=== PATIENT | male | born 1985 | race Caucasian/White ===

== ENCOUNTER 2018-06-30 18:55 | Inpatient (IN) | payer BC, OTHER ==
[2018-06-30] VITALS: BP 98/67
[~2018-06-30] VITALS: Ht 172.7 cm; Wt 70.3 kg
[2018-06-30 21:00] VITALS: BP 143/91
--- NOTE | 2018-06-30 21:00 | NUR ---
Pre-admission assessment Patient is a 33-year old, male, seen at intake, AAOx4, no SOB but noted with anxiety and flushed skin. Patient is intoxicated and smells of alcohol. Discussed with patient admission policies of the unit. Patient is coherent and able to respond to questions appropriately. Patient is accompanied by mother and friend. Pt is ambulatory with steady gait. Pt reports that he relapsed mid-April after 7 months of sobriety. He verbalized drinking Tequila daily and used to use Cocaine daily and he last used 3 weeks ago. Vital signs taken and as follows: IF=790/91, P=119, O2 sat on RA=96%, RR=20, T=98.2. Pt verbalized instructions and teachings regarding disposal of narcotic and other controlled home meds, unit protocols such as taking of vital signs Q4H and handling and disposal of contraband.
[2018-06-30] MEDS ORDERED: DIAZEPAM 10 MG TABLET PO PRN ×2 (21:15)
[2018-06-30] MEDS ORDERED: LORAZEPAM 2 MG/1 ML VIAL IM PRN (21:15)
[2018-06-30] MEDS ORDERED: SRC ALCOHOL WITHDRAWAL ADMITTING PROTOCOL XX PRN (21:15)
[2018-06-30] MEDS ORDERED: MAG HYDROX/AL HYDROX/SIMETH 30 ML LIQUID UDC PO PRN (21:15)
[2018-06-30] MEDS ORDERED: ONDANSETRON ODT 4 MG TAB.RAPDIS SL PRN (21:15)
[2018-06-30] MEDS ORDERED: diphenhydrAMINE 50 MG CAPSULE PO PRN (21:15)
[2018-06-30] MEDS ORDERED: DIAZEPAM 5 MG TABLET PO PRN (21:15)
[2018-06-30] MEDS ORDERED: LOPERAMIDE HCL 2 MG CAPSULE PO PRN ×2 (21:15)
[2018-06-30] MEDS ORDERED: MIRALAX 17 GM POWD.PACK PO PRN (21:15)
[2018-06-30] MEDS ORDERED: ONDANSETRON 4 MG/2 ML VIAL IM PRN (21:15)
[2018-06-30] MEDS ORDERED: ACETAMINOPHEN 325 MG TABLET PO PRN (21:15)
[2018-06-30] MEDS ORDERED: MAGNESIUM HYDROXIDE 30 ML LIQUID UDC PO PRN (21:15)
[2018-06-30 21:26] LABS: BASOPHILS # (AUTO) 0.1 K/uL (0.0-8.0); BASOPHILS % (AUTO) 0.7 % (0.0-2.0); EOSINOPHILS # (AUTO) 0.3 K/uL (0.0-0.7); HEMATOCRIT 50.1 % (36.7-47.1); LYMPHOCYTES # (AUTO) 3.5 K/uL (20.0-40.0); LYMPHOCYTES % (AUTO) 39.3 % (20.5-51.5); MEAN CORPUSCULAR HEMOGLOBIN 32.7 uug (23.8-33.4); MEAN CORPUSCULAR HGB CONC 34 g/dL (32.5-36.3); MEAN CORPUSCULAR VOLUME 96.2 fL (73.0-96.2); MONOCYTES # (AUTO) 0.8 K/uL (2.0-10.0); MONOCYTES % (AUTO) 9.2 % (0.0-11.0); NEUTROPHILS # (AUTO) 4.3 K/uL (1.8-8.9); NEUTROPHILS % (AUTO) 47.8 % (38.5-71.5); PLATELET COUNT (AUTO) 265 K/uL (152-348); RED BLOOD CELL COUNT(AUTO) 5.21 MIL/uL (4.06-5.63)
[2018-06-30 21:39] LABS: BILIRUBIN,TOTAL 0.3 mg/dL (0.2-1.0); CREATININE 0.9 mg/dL (0.6-1.3); MAGNESIUM 2.3 mg/dL (1.8-2.4); POTASSIUM 4.1 mmol/L (3.5-5.1)
[2018-06-30 21:45] LABS: *AMPHETAMINE, URINE NEGATIVE (NEGATIVE); *BARBITURATE, URINE NEGATIVE (NEGATIVE); *CANNABINOID, URINE NEGATIVE (NEGATIVE); *COCCAINE, URINE NEGATIVE (NEGATIVE); *OPIATE, URINE NEGATIVE (NEGATIVE); *PHENCYCLIDINE SCREEN,URINE NEGATIVE (NEGATIVE)
[2018-06-30 22:02] LABS: THYROID STIMULATING HORMONE 0.954 mIU/mL (0.358-3.740)
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
[2018-06-30] MEDS: CLONIDINE HCL 0.1 MG TABLET PO PRN (22:24)
--- NOTE | 2018-06-30 22:24 | NUR ---
PRN Clonidine Patient noted to be anxious and is easily agitated. With IL=680/97, jibwe=156. Administered Clonidine 0.1 mg PO PRN. Will reassess.
[2018-06-30] MEDS ORDERED: THIAMINE HCL 200 MG/2 ML VIAL IM ONE (23:00)
--- NOTE | 2018-06-30 23:25 | NUR ---
Clonidine reassess Patient asleep with no SOB nor facial grimacing noted.
[2018-07-01] VITALS: BP 98/67
--- NOTE | 2018-07-01 | NUR ---
CIWA=4 Patient continues to be anxious and appears flushed. Patient is also melancholic. Dressing on the right arm is intact.
[2018-07-01] MEDS ORDERED: NEOM28.37 TP (00:17)
[2018-07-01] MEDS ORDERED: LAMO25TA5 PO (00:17)
[2018-07-01] MEDS ORDERED: BACL10TA PO (00:17)
[2018-07-01] MEDS ORDERED: ALBU18HF2 IH (00:18)
[2018-07-01] MEDS ORDERED: QUET100T PO (00:18)
[2018-07-01] MEDS ORDERED: NAPH10DR EACHEYE (00:18)
--- NOTE | 2018-07-01 04:00 | NUR ---
CIWA Deferred CIWA Deferred. Patient is asleep. No SOB nor facial grimacing noted.
--- NOTE | 2018-07-01 07:21 | NUR ---
End of Shift Patient asleep on bed. His room smells of alcohol. He continued to have a depressed mood when he was awake. Dressing on right arm is dry, secured and intact. Patient with flushed skin and appears unkempt and disheveled. PRN Clonidine was administered during the shift and it was effective. Last CIWA=4 and slept for 7 hours. Endorsed to AM shift nurse for continuity of care.
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
[2018-07-01 08:00] VITALS: BP 110/64
[2018-07-01] MEDS ORDERED: SILVER SULFADIAZINE 1% CREAM 50 GM TP SCH (09:00)
[2018-07-01] MEDS ORDERED: TUBERCULIN,PURIF.PROT.DERIV. 5 TU/0.1 ML TEST ID ONE (09:00)
[2018-07-01] MEDS: MULTIVITAMINS,THERAPEUTIC TABLET PO SCH (09:38)
[2018-07-01] MEDS: THIAMINE HCL 100 MG TABLET PO SCH (09:38)
[2018-07-01] MEDS: FOLIC ACID 1 MG TABLET PO SCH (09:38)
--- NOTE | 2018-07-01 09:38 | NUR ---
PRN GIVEN Pt was c/o anxiety, agitation, sweats and chills. Pt is observed with fine tremors on BUE and restlessness. CIWA score was 11. Valium 10mg PO PRN was given as ordered. Encouraged increase fluid intake. Will continue to monitor.
--- NOTE | 2018-07-01 09:43 | NUR ---
Therapist prompted client to attend group therapy.
--- NOTE | 2018-07-01 10:38 | NUR ---
PRN RE-ASSESSMENT Valium PRN was effective. Pt continues to be observed anxious m/b pt is being observed fidgety. Fine tremors are seen on BUE. Pt states, "I feel a little better". CIWA score is 8. Will continue to monitor.
[2018-07-01 12:00] VITALS: BP 117/71
--- NOTE | 2018-07-01 12:00 | NUR ---
CIWA SCORE Pt is c/o increase anxiety, agitation, sweats and chills. Pt is noted with flat affect and fine tremors on BUE. CIWA score was 11. Encouraged increase fluid intake. Will continue to monitor.
[2018-07-01] MEDS ORDERED: 5 DAY TAPER VALIUM-SERENITY PROTOCOL PO PRN (12:45)
[2018-07-01] MEDS ORDERED: BACLOFEN 10 MG TABLET PO SCH (14:00)
[2018-07-01] MEDS ORDERED: NAPHAZOLINE/PHENIR OPHT DROP 15 ML BOTTLE EACHEYE PRN (14:00)
[2018-07-01] MEDS: DIAZEPAM 10 MG TABLET PO SCH ×2 (14:56→21:18)
[2018-07-01] MEDS: BACLOFEN 10 MG TABLET PO SCH ×2 (14:56→21:18)
[2018-07-01 16:00] VITALS: BP 129/72
--- NOTE | 2018-07-01 19:10 | NUR ---
END OF SHIFT Pt is a 33 yr old male, AA&Ox4, Pt was admitted on 06/30/18 for ETOH withdrawal and started on 5 day Valium taper as ordered. Pt has been observed with increase fatigue and remained in bed throughout the day. Pt was encouraged to attend group therapy but pt refused. While awake, Pt was c/o increase anxiety, agitation, sweats, chills and lack of appetite. Pt was observed with flat affect and fine tremors on BUE. Last CIWA score was 8. Pt was given Valium 10mg PO PRN as ordered and medication was effective. Pt was also seen by CARLOS King of Dr[facility] Surgeon; with new wound treatment on right arm. Pt was encouraged increase fluid intake for hydration. Safety precautions observed. Endorsed to production team manager nurse to continue with care.
--- NOTE | 2018-07-01 19:10 | NUR ---
Start of Shift Received 33 year old male patient admitted to [facility] 06/30/18 for medically supervised withdrawal from ETOH. Pt currently on day 1 of a 5 day Valium taper, which he is tolerating well. Pt received PRN Valium on day shift. Last CIWA 8 @1600. Pt resting in bed with eyes closed. Respirations are even and unlabored. Bed is low, padded side rails up x 2, and call marie in reach. Will continue to monitor.
[2018-07-01 20:00] VITALS: BP 144/93
--- NOTE | 2018-07-01 20:00 | NUR ---
CIWA 13 Pt awake and alert. Pt is anxious, agitated, withdrawn, Noted with tremors. C/O visual disturbances (spots and memories), auditory disturbances ( voices, conversations), and tactile disturbances (tingling).
[2018-07-01] MEDS: QUETIAPINE FUMARATE 100 MG TABLET PO SCH (21:18)
[2018-07-01] MEDS: LAMOTRIGINE 25 MG TABLET PO SCH (21:19)
[2018-07-01] MEDS: VENTOLIN INH PRN (21:22)
--- NOTE | 2018-07-01 21:30 | NUR ---
PRN MDI @2121/ PRN wound care @2129 Pt received his clean clothes. Dressing was removed for shower. S/P shower pt requested his inhaler. Dose given at 2121. Wound care given per order. Will continue to monitor.
--- NOTE | 2018-07-01 22:22 | NUR ---
Reassess PRN MDI Medication effective. Pt is resting with eyes closed. Respirations are even and unlabored. Will continue to monitor.
--- NOTE | 2018-07-02 | NUR ---
CIWA deferred/Vitals refused Pt in bed resting with eyes closed. Respirations are even and unlabored. Bed low, padded side rails up x 2, and call marie in reach. CIWA deferred and pt refused vitals. Continue to monitor.
--- NOTE | 2018-07-02 06:36 | NUR ---
End of Shift Endorsing 33 year old male patient admitted to [facility] 06/30/18 for medically supervised withdrawal from ETOH. Pt currently on day 2 of a 5 day Valium taper, which he is tolerating well. Pt received PRN MDI on pharmacy technology instructor. Last CIWA 13 @1999. Pt resting in bed with eyes closed. Respirations are even and unlabored. Bed is low, padded side rails up x 2, and call marie in reach. PO intake 1150 ml, voided x 4, BM x 0, and slept 8 hours.
[2018-07-02 08:00] VITALS: BP 138/88
--- NOTE | 2018-07-02 08:00 | NUR ---
START OF SHIFT AND CIWA ASSESSMENT Pt 33 y/o male admitted for etoh withdrawal. Pt received in room on bed with eyes closed resting, but arousable to name. Pt alert and oriented to name, place, and time. Perrla. Skin warm and moist to touch. Respirations even and unlabored. Appears disheveled. Clothes and empty drink bottles scattered throughout the room. Encouraged to maintain hygiene. ciwa=14 @ 0800. Anxious and restless. Pressured speech. Irritable. Intermittent perspiration. Bilateral hand gross tremors noted. Complaints of generalized discomfort. It was reported that pt slept for 8 hours last night. Pt is on a 5 day valium taper and is on day 2. Pt denies any SI. Bed on lowest position with side rails x2 up for safety. Call light within reach.
[2018-07-02 08:06] LABS: HEPATITIS B SURFACE AG Negative (Negative)
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
[2018-07-02] MEDS: SILVER SULFADIAZINE 1% CREAM 50 GM TP SCH (09:41)
[2018-07-02] MEDS: MULTIVITAMINS,THERAPEUTIC TABLET PO SCH (09:41)
[2018-07-02] MEDS: DIAZEPAM 5 MG TABLET PO SCH ×4 (09:41→21:07)
[2018-07-02] MEDS: BACLOFEN 10 MG TABLET PO SCH ×3 (09:41→21:08)
[2018-07-02] MEDS: FOLIC ACID 1 MG TABLET PO SCH (09:41)
[2018-07-02] MEDS: THIAMINE HCL 100 MG TABLET PO SCH (09:41)
[2018-07-02] MEDS ORDERED: QUET50TA PO (09:46)
[2018-07-02] MEDS: IBUPROFEN 600 MG TABLET PO PRN (10:42)
--- NOTE | 2018-07-02 10:50 | NUR ---
PRN MOTRIN Pt with c/o pain of right arm 11/06. Motrin po prn per MD order given.
--- NOTE | 2018-07-02 11:50 | NUR ---
PRN ROSLYN RUIZ Pt states medication effective.
[2018-07-02 12:00] VITALS: BP 152/101
--- NOTE | 2018-07-02 12:00 | NUR ---
CIWA ASSESSMENT ciwa=12. Anxious and restless. Bilateral hand tremors noted. Pressured speech noted. Fidgety. Complaints of generalized discomfort. Skin warm and moist to touch.
[2018-07-02] MEDS: CLONIDINE HCL 0.1 MG TABLET PO PRN (12:46)
--- NOTE | 2018-07-02 12:47 | NUR ---
PRN CATAPRES bp= 152/101. Catapres po prn per MD order given.
--- NOTE | 2018-07-02 12:50 | NUR ---
Therapist prompted client to attend daily group therapy sessions.
--- NOTE | 2018-07-02 13:47 | NUR ---
PRN LONDON RUIZ uo=084/92
[2018-07-02 16:00] VITALS: BP 144/97
--- NOTE | 2018-07-02 16:00 | NUR ---
CIWA ASSESSMENT ciwa=12. Anxious and restless. Bilateral hand tremors noted. Pressured speech. Irritable. Complaints of generalized discomfort.
[2018-07-02] MEDS ORDERED: Medication Not On Formulary EA (Quetiapine Fumarate (Seroquel) 50 MG) PO SCH (17:00)
[2018-07-02] MEDS: QUETIAPINE FUMARATE 25 MG TABLET PO SCH (17:20)
--- NOTE | 2018-07-02 17:33 | NUR ---
PRN IMMODIUM Pt states with 1 episode of loose stool. Immodium po prn per MD order given.
--- NOTE | 2018-07-02 18:33 | NUR ---
PRN IMODIUM EVAL Pt denies any loose stool at this time.
--- NOTE | 2018-07-02 19:30 | NUR ---
Start of shift Patient Received. Patient is a 33 year old male that continues on a modified Valium taper for increased signs and symptoms of ETOH Withdrawal. Patient continues with ongoing wound care to right forearm open wound. Patient received PRN Imodium, Clonidine, and Motrin with medications noted to be effective. Last noted CIWA 12. Upon rounds patient is noted in his room sleeping. Breathing even and non labored. No signs of restlessness or facial grimacing noted. Will continue to monitor.
--- NOTE | 2018-07-02 19:42 | NUR ---
END OF SHIFT Pt 33 y/o male admitted for etoh withdrawal. Pt alert and oriented to name, place, and time. Perrla. Skin warm and moist to touch. Respirations even and unlabored. Appears disheveled. Empty drink bottles and food wrappings scattered throughout the room. Encouraged to maintain hygiene. ciwa=12 @ 1600. Anxious and restless. Pressured speech. Bilateral hand gross tremors noted. Irritable. Intermittent perspiration. Complaints of generalized pain. Pt attended group activity. Pt medication compliant. Pt is on a 5 day valium taper and is on day 2. Pt denies any SI. Bed on lowest position with side rails x2 up for safety. Call light within reach.
[2018-07-02 20:51] VITALS: BP 131/74
--- NOTE | 2018-07-02 20:55 | NUR ---
CIWA Assessment/Left AC Discoloration d/t blood draw Patient continues on a modified Valium taper for increased signs and symptoms of withdrawal. Patient appears with flat, depressed, worried affect. He verbalizes increased anxiety, chills, sweats, flushed face, agitation, and tremulous to touch. Wound care rendered to right forearm and patient was able to tolerate well. Patient is also noted with a hematoma to left AC. Patient verbalizes "this is from the blood draw from when I came in." No swelling or pain noted. Area is noted blue to purple in color. CN and MD made aware. Will continue to monitor.
[2018-07-02] MEDS: LAMOTRIGINE 25 MG TABLET PO SCH (21:08)
[2018-07-02] MEDS: QUETIAPINE FUMARATE 100 MG TABLET PO SCH (21:08)
--- NOTE | 2018-07-03 00:05 | NUR ---
Vitals and CIWA Assessment Patient is noted in bed with eyes closed. Breathing even and non labored. No signs of restlessness or facial grimacing noted. Vitals refused. CIWA not able to be completed as per order. Will continue to monitor.
--- NOTE | 2018-07-03 04:45 | NUR ---
Vitals and CIWA Patient is noted in bed with eyes closed. Breathing even and non labored. No signs of facial grimacing or restlessness noted. Vitals Refused. CIWA not able to be completed as per order. Will continue to monitor.
[2018-07-03 05:30] VITALS: BP 133/77
[2018-07-03] MEDS: IBUPROFEN 600 MG TABLET PO PRN ×2 (05:36→20:40)
--- NOTE | 2018-07-03 05:38 | NUR ---
WA Assessment/PRN medication Administration Patient is noted awake and returning from smoking patio. Patient is noted to verbalize increased pain to right forearm and requesting Motrin. PRN Motrin administered. patient is noted to verbalize intermittent chills, sweats, anxiety, agitation, and tremulous to touch. patient denies need for medication. He is noted to attempt to fall back to sleep. Will continue to monitor.
--- NOTE | 2018-07-03 06:27 | NUR ---
PRN Medication Reassessment Patient is noted in bed with eyes closed. Breathing even and non labored. No signs of restlessness or facial grimacing noted. PRN Motrin noted to be effective. Will continue to monitor.
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
[2018-07-03 08:14] VITALS: BP 121/77
--- NOTE | 2018-07-03 08:16 | NUR ---
START OF SHIFT: Received Pt A/o X 4. He presents with depressed mood and congruent affect.He denies S/I and H/I. He reports anxiety,restlessness and irritability. CIWA 11. Wound cared done to R arm. It is granulated with small amount of drainage noted. No odor or swelling noted. He continues on Valium taper to manage s/s of w/d which he states is effective. Encouraged increased fluids to assist in facilitating detox process. Will continue to monitor and manage s/s of w/d.
[2018-07-03] MEDS: MULTIVITAMINS,THERAPEUTIC TABLET PO SCH (09:19)
[2018-07-03] MEDS: BACLOFEN 10 MG TABLET PO SCH ×3 (09:19→22:17)
[2018-07-03] MEDS: FOLIC ACID 1 MG TABLET PO SCH (09:19)
[2018-07-03] MEDS: DIAZEPAM 5 MG TABLET PO SCH ×3 (09:20→22:17)
[2018-07-03] MEDS: QUETIAPINE FUMARATE 25 MG TABLET PO SCH ×3 (09:20→18:04)
[2018-07-03] MEDS: THIAMINE HCL 100 MG TABLET PO SCH (09:21)
[2018-07-03] MEDS: SILVER SULFADIAZINE 1% CREAM 50 GM TP SCH (09:21)
[2018-07-03 09:50] LABS: BILIRUBIN,TOTAL 0.3 mg/dL (0.2-1.0); CREATININE 0.8 mg/dL (0.6-1.3); TOTAL PROTEIN, SERUM 6.4 g/dL (6.4-8.2)
[2018-07-03 12:00] VITALS: BP 121/77
--- NOTE | 2018-07-03 12:20 | NUR ---
CIWA 8 He reports intermittent sweats,anxiety and restlessness. Will continue to monitor.
[2018-07-03] MEDS: ESCITALOPRAM OXALATE 10 MG TABLET PO SCH (12:23)
[2018-07-03 16:00] VITALS: BP 134/91
--- NOTE | 2018-07-03 19:15 | NUR ---
Start of Shift note: Patient is a 33 y.o male admitted on 06/30/18 for medically supervised withdrawal from ETOH use. Pt also reported cocaine use. Pt currently on his day #3 of his 5-day Valium taper and tolerating well. His last CIWA 10. No PRN medications received during day shift. Continue with wound treatment on right forearm daily an PRN. Dressing clean dry and intact. Encourage patient to increase fluid intake. Educated pt of current plan of care and medication regimen for the night. Safety measures in place. Bed alarm activated. Both side rails up. Call light within pts reach. Will continue to monitor patient.
--- NOTE | 2018-07-03 19:48 | NUR ---
END OF SHIFT Pt continues on Valium taper to manage s/s of w/d. He c/o anxiety,depression,restlessness and irritability. He denies S/I and H/I. Last CIWA 10. he was compliant with groups and increased fluids. Will pass shift report to oncoming night nurse.
[2018-07-03 20:00] VITALS: BP 161/104
--- NOTE | 2018-07-03 20:00 | NUR ---
CIWA Assessment Pt noted ambulating in the hallway. He appears flushed, with a flat and guarded affect. He is disheveled, unkempt and noted to be malodorous. Scattered clothes and empty bottles all over room. He is showing withdrawal symptoms such as anxiety, agitation, fine tremors, & sweating. CIWA 11.
[2018-07-03] MEDS: CLONIDINE HCL 0.1 MG TABLET PO PRN (20:40)
--- NOTE | 2018-07-03 20:40 | NUR ---
PRN Clonidine & Motrin Patient complained of 6/10 right forearm pain & noted with elevated BP 161/104, KS 126. PRN Clonidine & Motrin administered as ordered. Will monitor for effectiveness of medication.
[2018-07-03 21:30] VITALS: BP 135/97
--- NOTE | 2018-07-03 21:40 | NUR ---
PRN Reassessment Pt verbalized decreased in pain from 6/10 to 2/10 and B/P noted 135/97, NE 117 after 1 hour of medication administration. Will continue to monitor patient.
[2018-07-03] MEDS: LAMOTRIGINE 25 MG TABLET PO SCH (22:17)
[2018-07-03] MEDS: QUETIAPINE FUMARATE 100 MG TABLET PO SCH (22:50)
[2018-07-03] MEDS: VENTOLIN INH PRN (23:15)
--- NOTE | 2018-07-04 | NUR ---
CIWA deferred Pt refused to be woken up for vitals at this time. Pt in bed with eyes close. No acute distress noted. respiration even & unlabored. CIWA deferred d/t pt is asleep and to be reassess when pt's is awake.. Will continue to monitor patient.
--- NOTE | 2018-07-04 04:00 | NUR ---
CIWA deferred Pt refused vitals. Pt asleep in bed with eyes close. No acute distress noted. Breathing even & unlabored. CIWA deferred as ordered and will reassess when pt's is awake.. Will continue to monitor patient.
--- NOTE | 2018-07-04 07:03 | NUR ---
End of Shift Note: Patient continues on his 5-day Valium taper and tolerating well. Pt stable throughout the shift with no acute distress noted. During shift, pt noted withdrawal symptoms such as flushed face, anxiety, agitation, clammy skin, & fine tremors. Last CIWA is 9. Pt received PRN Clonidine for increased in BP and Motrin for pain and was effective. Dressing done on right forearm, kept clean & dry. Encourage pt to increase fluid intake. All due medications and all needs attended. Continue to closely monitor patient for any s/s of withdrawal. Safety measures in place. Bed locked in lowest position. Both side rails up for safety. Call light within pts reach. Will endorse pt to day shift nurse.
--- NOTE | 2018-07-04 07:30 | NUR ---
Start of Shift Note: Report received from communications director nurse. Last CIWA 9 and pt slept for 6 hours. Upon start of shift pt was walking around the hallway, waiting to go to the patio. During assessment, pt stated he is anxious but had no other complaints. Pt is in good spirits and ready to eat breakfast. Educated pt about current plan of care. Pt verbalized understanding. Pt denies pain at this time. Pt is currently on Subutex taper to manage withdrawal symptoms. Bed in lowest position. Side rails up x2. Call light functioning and within reach. All needs attended and met. Will continue to monitor.
[2018-07-04 08:00] VITALS: BP 140/98
[2018-07-04] MEDS: FOLIC ACID 1 MG TABLET PO SCH (08:35)
[2018-07-04] MEDS: THIAMINE HCL 100 MG TABLET PO SCH (08:35)
[2018-07-04] MEDS: MULTIVITAMINS,THERAPEUTIC TABLET PO SCH (08:35)
[2018-07-04] MEDS: ESCITALOPRAM OXALATE 10 MG TABLET PO SCH (08:36)
[2018-07-04] MEDS: QUETIAPINE FUMARATE 25 MG TABLET PO SCH ×3 (08:36→15:49)
[2018-07-04] MEDS: BACLOFEN 10 MG TABLET PO SCH ×3 (08:36→21:12)
[2018-07-04] MEDS: DIAZEPAM 5 MG TABLET PO SCH ×2 (08:36→21:12)
--- NOTE | 2018-07-04 08:40 | NUR ---
Naphcon drops: Pt reported itchy eyes. Naphcon eye drops given as ordered. Eye drops effective
[2018-07-04 12:00] VITALS: BP 140/92
[2018-07-04] MEDS: SILVER SULFADIAZINE 1% CREAM 50 GM TP SCH (12:09)
[2018-07-04] MEDS: IBUPROFEN 600 MG TABLET PO PRN ×2 (12:22→22:09)
--- NOTE | 2018-07-04 12:22 | NUR ---
Motrin PRN: Wound dressing done. Pt c/o 6/10 pain on R arm site. Motrin PRN given as ordered.
--- NOTE | 2018-07-04 13:22 | NUR ---
Motrin Reassessment: Pt reported relief from pain. Motrin effective.
[2018-07-04 16:00] VITALS: BP 143/84
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
[2018-07-04 20:00] VITALS: BP 120/78
[2018-07-04] MEDS: QUETIAPINE FUMARATE 100 MG TABLET PO SCH (21:12)
[2018-07-04] MEDS: LAMOTRIGINE 25 MG TABLET PO SCH (21:12)
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
--- NOTE | 2018-07-04 22:09 | NUR ---
PRN MOTRIN ADMINISTRATION Patient reported having a 5 out of 10 pain in his distal right arm after PRN dressing change. PRN Motrin 600 mg given per MD orders and patient request. Will continue to monitor and assess for effectiveness.
--- NOTE | 2018-07-04 23:09 | NUR ---
PRN MOTRIN REASSESSMENT Patient reports significant relief from right arm pain. Pain level is now at a 2 out of 10. PRN Motrin noted to be effective. Will continue to monitor.
[2018-07-05] VITALS: BP 118/92
[2018-07-05] MEDS: HYDROXYZINE PAMOATE 25 MG CAPSULE PO PRN ×2 (00:28→16:50)
--- NOTE | 2018-07-05 00:28 | NUR ---
PRN VISTARIL ADMINISTRATION Patient reported having severe anxiety which was making it difficult for him to fall asleep. PRN Vistaril 50 mg administered per MD orders and patient request. Will continue to monitor for effectiveness.
--- NOTE | 2018-07-05 01:28 | NUR ---
PRN VISTARIL REASSESSMENT Patient is noted lying in bed with eyes closed and huong, unlabored respirations. No s/s of pain or distress is noted at this time. HOB is flat and bilateral side rails raised for safety. Call light is functional and within reach. Will continue to monitor.
--- NOTE | 2018-07-05 04:00 | NUR ---
VITAL SIGNS REFUSED Patient noted lying in bed with eyes closed and with even, unlabored respirations. Vital signs refused. HOB flat and bilateral side rails raised for safety. No s/s of distress noted at this time. Call light is functional and within reach. Will continue to monitor.
--- NOTE | 2018-07-05 07:28 | NUR ---
END OF SHIFT Patient is noted lying in bed with eyes closed and respirations even and unlabored. Patient is a 33 year old male admitted for medically supervised detox from ETOH with secondary diagnoses of anxiety, depression, asthma, and bipolar disorder and he has a shellfish allergy. During the shift, the patient reported anxiety and pain to his right arm requiring PRN meds Vistaril and Motrin. He also required a dressing change to his right arm. He tolerated the dressing change with no issues. PRN meds were effective. Pt slept for about 6.5 hours. Last CIWA score is 9 taken at 0000. Call light is functional and within reach. Bilateral side rails raised. All safety measures in place. Endorsed to oncoming AM nurse.
--- NOTE | 2018-07-05 07:30 | NUR ---
START OF SHIFT Pt 33 y/o male admitted for etoh withdrawal. Pt received in room on bed awake watching television. Pt alert and oriented to name, place, and time. Perrla. Skin warm and moist to touch. Respirations even and unlabored. Appears disheveled. Empty drink bottles scattered throughout the room. Encouraged to maintain hygiene. Last ciwa=9 @2000. Anxious and restless. Pressured speech. Irritable. Complaints of generalized discomfort and body aches. It was reported that pt slept for 7 hours last night. Pt is on a 5 day valium taper and is on day 5. Bed on lowest position with side rails x2 up for safety. Call light within reach.
[2018-07-05 08:00] VITALS: BP 128/70
[2018-07-05] MEDS: FOLIC ACID 1 MG TABLET PO SCH (08:13)
[2018-07-05] MEDS: MULTIVITAMINS,THERAPEUTIC TABLET PO SCH (08:13)
[2018-07-05] MEDS: ESCITALOPRAM OXALATE 10 MG TABLET PO SCH (08:13)
[2018-07-05] MEDS: BACLOFEN 10 MG TABLET PO SCH ×3 (08:13→21:55)
[2018-07-05] MEDS: QUETIAPINE FUMARATE 25 MG TABLET PO SCH ×3 (08:13→16:51)
[2018-07-05] MEDS: IBUPROFEN 600 MG TABLET PO PRN (08:13)
[2018-07-05] MEDS: THIAMINE HCL 100 MG TABLET PO SCH (08:13)
--- NOTE | 2018-07-05 08:13 | NUR ---
MOTRIN PRN Pt with c/o pain of right arm 11/06. Motrin po prn per MD order given.
[2018-07-05] MEDS: SILVER SULFADIAZINE 1% CREAM 50 GM TP SCH (08:41)
[2018-07-05] MEDS ORDERED: DIAZEPAM 5 MG TABLET PO SCH (09:00)
--- NOTE | 2018-07-05 09:13 | NUR ---
PRN ROSLYN RUIZ Pt states pain 08/09
[2018-07-05 12:00] VITALS: BP 138/64
[2018-07-05 16:00] VITALS: BP 143/100
[2018-07-05] MEDS: CLONIDINE HCL 0.1 MG TABLET PO PRN (16:51)
--- NOTE | 2018-07-05 17:08 | NUR ---
PRN CATAPRES VISTARIL Pt anxious and restless. Vistaril po prn per MD order given in=263/100. Catapres po prn per MD order given.
--- NOTE | 2018-07-05 18:08 | NUR ---
PRN CATAPRES VISTARIL EVAL Pt states medication for anxiety effective. ev=[id number]
--- NOTE | 2018-07-05 18:54 | NUR ---
END OF SHIFT Pt 33 y/o male admitted for etoh withdrawal. Pt alert and oriented to name, place, and time. Perrla. Skin warm and moist to touch. Respirations even and unlabored. Appears disheveled. Empty drink bottles scattered throughout the room. Encouraged to maintain hygiene. Last ciwa=7 @1600. Anxious and restless. Bilateral hand tremors noted. Pressured speech. Complaints of generalized discomfort and body aches. Pt attended group activity. Pt is scheduled to be discharged tomorrow. Pt is on a 5 day valium taper and is on day 5. Bed on lowest position with side rails x2 up for safety. Call light within reach.
--- NOTE | 2018-07-05 19:50 | NUR ---
START OF SHIFT NOTE Rcvd report from outgoing nurse. Pt is a 33 y/o male A/O to person, place, time, and purpose. Pt was admitted for medically supervised withdrawal from ETOH. Pt completed a 5 day Valium taper and is scheduled to be discharged on 07/06/18. Pt has been presenting w/ Anxiety, flat affect, racing thoughts fine tremors, and restlessness. Pt rcvd PRN Motrin, Vistaril, and Clonidine, and were noted effective by outgoing nurse. Last CIWA 7 @ 1600. Call light is within reach. Pt will continue to be monitored and needs met.
[2018-07-05 20:00] VITALS: BP 124/80
[2018-07-05] MEDS: QUETIAPINE FUMARATE 100 MG TABLET PO SCH (21:55)
[2018-07-05] MEDS: LAMOTRIGINE 25 MG TABLET PO SCH (21:55)
--- NOTE | 2018-07-06 07:10 | NUR ---
END OF SHIFT NOTE Endorsed pt to oncoming nurse. Pt is a 33 y/o male A/O to person, place, time, and purpose. Pt was admitted for medically supervised withdrawal from ETOH. Pt completed a 5 day Valium taper and is scheduled to be discharged on 07/06/18. Pt continued presenting w/ Anxiety, flat affect, racing thoughts fine tremors, and restlessness. Pt denies any S/I and H/I. No PRN medications were given during current shift. Pts fluid intake was 3000ml and he slept for 8hrs. Last CIWA 7 @ 2000. Call light is within reach.
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
[2018-07-06 08:00] VITALS: BP 138/84
[2018-07-06] MEDS ORDERED: ESCITALOPRAM OXALATE 10 MG TABLET PO SCH (09:00)
[2018-07-06] MEDS: FOLIC ACID 1 MG TABLET PO SCH (09:14)
[2018-07-06] MEDS: MULTIVITAMINS,THERAPEUTIC TABLET PO SCH (09:14)
[2018-07-06] MEDS: THIAMINE HCL 100 MG TABLET PO SCH (09:14)
[2018-07-06] MEDS: BACLOFEN 10 MG TABLET PO SCH ×2 (09:14→14:29)
[2018-07-06] MEDS: QUETIAPINE FUMARATE 25 MG TABLET PO SCH ×2 (09:14→13:03)
[2018-07-06] MEDS: SILVER SULFADIAZINE 1% CREAM 50 GM TP SCH (09:16)
[2018-07-06 12:00] VITALS: BP 146/91
--- NOTE | 2018-07-06 12:11 | NUR ---
Therapist prompted client to attend group therapy sessions.
[2018-07-06] MEDS ORDERED: BACL10TA PO (12:59)
[2018-07-06] MEDS ORDERED: CLON0.1T14 PO (12:59)
[2018-07-06] MEDS ORDERED: ESCI10TA PO (12:59)
[2018-07-06] MEDS ORDERED: HYDR-3895 PO (12:59)
[2018-07-06] MEDS ORDERED: QUET25TA PO (12:59)
[2018-07-06] MEDS ORDERED: QUET100T PO (12:59)
[2018-07-06] MEDS ORDERED: LAMO25TA5 PO (12:59)
[2018-07-06 13:06] VITALS: BP 146/87
[2018-07-06] MEDS: CLONIDINE HCL 0.1 MG TABLET PO PRN (13:06)
[2018-07-06] MEDS: HYDROXYZINE PAMOATE 25 MG CAPSULE PO PRN (13:06)
--- NOTE | 2018-07-06 13:06 | NUR ---
PRN GIVEN pt was c/o increase anxiety. Clonidine 0.1mg PO PRN and Vistaril 50mg PO PRN was given as ordered. Encouraged increase fluid intake. Will continue to monitor.
--- NOTE | 2018-07-06 14:06 | NUR ---
PRN RE-ASSESSMENT Clonidine PRN and Vistaril PRN was effective. Pt states he continues to have anxiety but is able to cope with anxiety level. Will continue to monitor.
--- NOTE | 2018-07-06 15:00 | NUR ---
DISCHARGE NOTE Pt is a 33 yr old male, AA&Ox4. Pt was admitted on 06/30/18 for ETOH withdrawal and completed a 5 day Valium taper as ordered. Pt has been cooperative with medication regimen and plan of care. Pt was c/o anxiety and was given Clonidine PRN and Vistaril PRN for anxiety. Medication was effective. Pt was educated on discharged summary and prescriptions. Pt was able to verbalize understanding. Pt was discharged off the unit at 1455 in stable condition. Pt was discharged to [facility]. Pt left with all belongings, valuables and home medications.
== END 2018-07-06 14:55 | DRG 895 ==
LOC: SRC 20:17
PROVIDERS: ADMIT Family Medicine Addiction Medicine; ATTEND Family Medicine Addiction Medicine
PROC: HZ2ZZZZ Detoxification Services for Substance Abuse Treatment (ICD-10-PCS; principal; 2018-06-30)
PROC: HZ31ZZZ Individual Counseling for Substance Abuse Treatment, Behavioral (ICD-10-PCS; 2018-07-01)
PROC: 2W2CX4Z Dressing of Right Lower Arm using Bandage (ICD-10-PCS; 2018-07-01)
PROC: HZ41ZZZ Group Counseling for Substance Abuse Treatment, Behavioral (ICD-10-PCS; 2018-07-02)
DX: F10.230 Alcohol dependence with withdrawal, uncomplicated (principal); F31.60 Bipolar disorder, current episode mixed, unspecified; F14.10 Cocaine abuse, uncomplicated; Y90.9 Presence of alcohol in blood, level not specified; F41.1 Generalized anxiety disorder; T22.211A Burn of second degree of right forearm, initial encounter; X77.8XXA Intentional self-harm by other hot objects, initial encounter; Y92.89 Other specified places as the place of occurrence of the external cause; F17.210 Nicotine dependence, cigarettes, uncomplicated; J45.909 Unspecified asthma, uncomplicated; Z79.51 Long term (current) use of inhaled steroids; R74.0 Nonspecific elevation of levels of transaminase and lactic acid dehydrogenase [LDH]; Z91.5 Personal history of self-harm; Z81.1 Family history of alcohol abuse and dependence
CPT/HCPCS: 36415; 70030-TC; 80307; 83690; 83735; 84443; 85025; 86580; 86592; 86705; 86803; 87340; 87806; G0480; J3411